=== PATIENT | female | born 1950 | race Caucasian/White ===

== ENCOUNTER → 2016-12-11 | Outpatient (CLI) | payer MEDICARE, OTHER ==
[~2016-12-11] MED LIST: AMLO5TAB PO; ASPIRIN 81MG TA81 MG PO; METFORMIN 500M500 M1 PO; METOPROLOL 25 M25 MG PO; NITROGLYCERIN0.4 MG SL; OMEPRAZOLE40 MG PO; ONE DAILY FOR1 EACH PO; UBIQUINOL100 MG PO; VALSARTAN160 MG PO
--- NOTE | 2016-12-11 13:04 | RADIOLOGY REPORT PS360 ---
History and Indications: Hypertension, diabetes, family history, chest pain and fatigue Procedure: Patient exercised on Tay protocol 6 min and 31 seconds, resting heart rate was 83 bpm resting blood pressure 146/80, with exercise maximum heart rate achieved was 1 40 bpm which is greater than 85% of the maximum predicted heart rate and a blood pressure was 200/95. Test was stopped due to fatigue patient denied any complained of chest pain. Patient has adequate exercise capacity achieved 7mets of workload on treadmill, the blood pressure response to exercise was hypertensive. Electrocardiogram: Resting electrocardiogram showed sinus rhythm left atrial enlargement poor R wave progression possible anterolateral infarct age indeterminate. With exercise there is less than 1.[address] segment depression noted from the baseline EKG. Occasional premature ventricular complexes were also seen. The EKG portion of the exercise Myoview is negative for ischemia. Cardiac stress and resting SPECT images: Cardiac stress and rest SPECT images were obtained using technetium 99 Myoview 10.5 mCi at rest and 30.3 mCi at stress, gated SPECT further analysis of segmental wall motion and calculation of the ejection fraction also done. Cardiac stress and the suspect images show decreased tracer activity in the anteroapical, apex and anteroseptal wall which improves on the resting images suggestive of reversible ischemia in that area. Computer derived ejection fraction is 48% with anteroapical wall hypokinesis. Right ventricle is mildly enlarged with normal contractility. Conclusion: 1. The EKG portion of the exercise Myoview is negative for ischemia, patient has adequate exercise capacity achieved 7mets of workload on treadmill, the blood pressure response to exercise was hypertensive test was started due to fatigue patient denied any complained of chest pain. 2. Scintigraphic evidence of reversible ischemia involving the anteroapical, apex and anteroseptal wall. Computer derived ejection fraction is 48% with segmental wall motion abnormality as described above, right ventricle is mildly enlarged with normal contractility. 3. Abnormal exercise Myoview study.
== END ==
LOC: RAD 06:22
DX: R07.89 Other chest pain (principal)
CPT/HCPCS: A9502

== ENCOUNTER 2016-12-12 16:05 | Observation (INO) | payer MEDICARE, OTHER ==
[~2016-12-12] VITALS: Ht 162.6 cm; Wt 90.0 kg
[2016-12-12 16:06] VITALS: BP 160/60
[2016-12-12] MEDS ORDERED: METFORMIN 500M500 M1 PO (16:09)
[2016-12-12] MEDS ORDERED: AMLO5TAB PO (16:10)
[2016-12-12] MEDS ORDERED: OMEPRAZOLE40 MG PO (16:10)
--- OUTSIDE RECORDS SUMMARY | 2016-12-12 16:18 | External Medical Summary Rpt | CCD ---
Demographics Preferred Language Belgian Marital Status Unknown Adventism Affiliation Unknown Race Unknown Ethnic Group Unknown Author Author , AMANDA PATEL Address Unknown Phone Immunization No patient found.
--- OUTSIDE RECORDS SUMMARY | 2016-12-12 16:18 | External Medical Summary Rpt ---
Author Author AMANDA Kelly, AMANDA Kelly Organization [employer] Address Unknown Phone Unavailable
--- OUTSIDE RECORDS SUMMARY | 2016-12-12 16:18 | External Medical Summary Rpt | CCD ---
Author Author , AMANDA PATEL Address Unknown Phone [email or web address] Purpose Continuity of Care Document - through 2016 Problems Code Diagnosis DOS Provider Status R07.9 CHEST PAIN, UNSPECIFIED
--- OUTSIDE RECORDS SUMMARY | 2016-12-12 16:18 | External Medical Summary Rpt | CCD ---
Author Author [employer] Organization [employer] Address Unknown Phone Unavailable Purpose Continuity of Care Document - through 2016
--- OUTSIDE RECORDS SUMMARY | 2016-12-12 16:18 | External Medical Summary Rpt | CCD ---
Author Author , AMANDA PATEL Address Unknown Phone [email or web address] Purpose Continuity of Care Document - through 2016 Problems Code Diagnosis DOS Provider Status R07.9 CHEST PAIN, UNSPECIFIED
--- OUTSIDE RECORDS SUMMARY | 2016-12-12 16:18 | External Medical Summary Rpt | CCD ---
Demographics Preferred Language Malaysian Marital Status Unknown Sikh Affiliation Unknown Race Unknown Ethnic Group Unknown Author Author , AMANDA PATEL Address Unknown Phone Immunization No patient found.
[2016-12-12 16:20] LABS: HEMOGLOBIN 12.8 g/dL (12.2-16.2)
--- NOTE | 2016-12-12 16:43 | Emergency Room Report ---
History of Present Illness Time Seen by 1616 Presenting Problem in Triage Pt arrived:Walked Presenting Problem:PT C/O CHEST TIGHTNESS THAT HAS BEEN GOING ON ALL WEEK. ADVISES SHE HAD A STRESS TEST YESTERDAY. SHE HAS BEEN HAVING TIGHTNESS ON AND OFF ALL DAY. 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 N Clinical Suspician of Infection? N Mental Status: 1 - Regular (Normal Baseline) Sepsis Risk:Low Sepsis Risk Have you (or family members/close friends) recently traveled outside the [place]? N If Yes, where/when: Have you had exposure to infectious disease within the past month? N TB? Other? Specify: ALLERGIES Coded Allergies: No Known Allergies (12/11/16) Home Medications Reported Medications Metformin HCl (Metformin) 500 MG PO BID #360 Omeprazole (Omeprazole 40MG) 40 MG PO DAILY #60 Amlodipine Besylate (Amlodipine) 5 MG PO DAILY #90 History Medical History General CAD? No Angina: No NV: No Hypertension? No Hyperlipidemia? No CHF? No DVT? No PE? No COPD? No Asthma? No Anemia? No GERD? No Gastric ulcers? No GI Bleed? No Hernia? No Thyroid Problems? No Hypothyroidism? No CVA? No Seizures? No Diabetes? Yes Insulin Dependent: No Insulin Pump: No Home FSBS? Yes Renal Insuffiency? No End Stage Renal Disease? No UTI? No Stones? No BPH? No GB Disease: No Nephritic Syndrome? No Asplenia? No Hepatitis? No Sickle Cell Disease? No Arthritis? No Migraines? No Cataracts? No Glaucoma? No MRSA? No HIV? No TB? No Anxiety? No Depression? No Cancer? No More? No Immunization Hx DT/Tetanus 1-4 Years Ago Surgical Hx Previous Surgery?Y GALLBLADDER Social History Smoking Hx Smoker: Never Smoker Tobacco: No Are you/the child exposed to second-hand smoke: No Alcohol Alcohol: No Review of Systems All Other Systems Reviewed and Negative Physical Exam Vital Signs Vital Signs Date Time Temp Pulse Resp B/P Pulse O2 O2 Flow FiO2 Ox Delivery Rate 12/12 1755 84 16 158/71 96 12/12 1712 65 16 163/64 98 12/12 1606 98.4 70 16 160/60 98 General Appearance normal appearance, WD/WN Respiratory Status No: respiratory distress. Cardiovascular normal exam, regular rate/rhythm Neurologic alert, taxation agent II-XII nml as tested Medical Decision Making LABS/Meds/Orders Pt receiving controlled substance in ED? No Results/Orders Laboratory Tests 12/12/16 1610: Sodium 140, Potassium 3.5, Chloride 104, Carbon Dioxide 27, BUN 11, Creatinine 0.7, Estimated Creat Clear 115, Estimated GFR (MDRD) 84, Glucose 151 H, Calcium 9.0, Total Bilirubin 1.3 H, AST 14 L, ALT 25, Alkaline Phosphatase 82, Creatine Kinase 42, CK-MB (CK-2) Rel Index 1.2, CK and CKMB Interp < 0.5, Troponin I < 0.02, Total Protein 7.1, Albumin 3.8, Globulin 3.3 H, Albumin/ Globulin Ratio 1.2, WBC 11.8 H, RBC 4.27, Hgb 12.8, Hct 38.4, MCV 89.9, RDW 12.6, Plt Count 254, MPV 7.6, Gran % 77.6, Gran # 9.2 H, Lymphocytes % 17.0, Monocytes % 4.5, Eosinophils % 0.7, Basophils % 0.3, Lymphocytes # 2.0, Monocytes # 0.5, Eosinophils # 0.1, Basophils # 0.0, PUBS MCHC 33.3, MCH 29.9 Current Medication Orders Sig/Michelet Start time Last Medication Dose Route Stop Time Status Admin Aspirin 243 MG ONCE ONE 12/12 164 DC 12/12 PO 12/12 164 1646 Aspirin 0 .STK-MED ONE 12/12 164 DC .ROUTE Sodium Chloride 10 ML PRN PRN 12/12 161 AC IV 12/13 161 Orders Procedure Date/time Status Decision to admit 12/12 181 Active ELECTROCARDIOGRAM REQUEST 12/13 1611 Active CHEST(2 VIEWS-NOT PORTABLE) 12/13 1611 Active IV SALINE LOCK 12/13 1611 Active CBC WITH AUTO DIFF 12/13 1611 Complete CARDIAC ENZYMES 12/13 1611 Complete CHEM 12 PROFILE 12/13 1611 [facility] 12/12 1609 Active Departure Departure Time of Disposition 1830 Disposition Still a Patient Clinical Impression Primary Impression: Chest pain at rest Secondary Impressions: Chest pain, rule out acute myocardial infarction Condition STABLE Referrals Danielle Walters MD (Family) Additional Instructions Admitted to OBS by Dr. Walters to Dr. Walters Discharge Counseling Counseled pt/family regarding diagnosis, test results, follow up needs ED Critical Care Critical Care No If Critical Care minutes are documented, the time involved in the performance of seperately reportable procedures was not counted toward critical care time documented. I directly delivered medical care to this critically ill and/or injured patient. Timely evaluation and treatment was necessary to address the significant organ system(s) dysfunction present in this patient. at 1837
--- NOTE | 2016-12-12 16:43 | Emergency Room Report ---
History of Present Illness Time Seen by 1616 Presenting Problem in Triage Pt arrived:Walked Presenting Problem:PT C/O CHEST TIGHTNESS THAT HAS BEEN GOING ON ALL WEEK. ADVISES SHE HAD A STRESS TEST YESTERDAY. SHE HAS BEEN HAVING TIGHTNESS ON AND OFF ALL DAY. 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 N Clinical Suspician of Infection? N Mental Status: 1 - Regular (Normal Baseline) Sepsis Risk:Low Sepsis Risk Have you (or family members/close friends) recently traveled outside the [place]? N If Yes, where/when: Have you had exposure to infectious disease within the past month? N TB? Other? Specify: ALLERGIES Coded Allergies: No Known Allergies (12/11/16) Home Medications Reported Medications Metformin HCl (Metformin) 500 MG PO BID #360 Omeprazole (Omeprazole 40MG) 40 MG PO DAILY #60 Amlodipine Besylate (Amlodipine) 5 MG PO DAILY #90 History Medical History General CAD? No Angina: No NM: No Hypertension? No Hyperlipidemia? No CHF? No DVT? No PE? No COPD? No Asthma? No Anemia? No GERD? No Gastric ulcers? No GI Bleed? No Hernia? No Thyroid Problems? No Hypothyroidism? No CVA? No Seizures? No Diabetes? Yes Insulin Dependent: No Insulin Pump: No Home FSBS? Yes Renal Insuffiency? No End Stage Renal Disease? No UTI? No Stones? No BPH? No GB Disease: No Nephritic Syndrome? No Asplenia? No Hepatitis? No Sickle Cell Disease? No Arthritis? No Migraines? No Cataracts? No Glaucoma? No MRSA? No HIV? No TB? No Anxiety? No Depression? No Cancer? No More? No Immunization Hx DT/Tetanus 1-4 Years Ago Surgical Hx Previous Surgery?Y GALLBLADDER Social History Smoking Hx Smoker: Never Smoker Tobacco: No Are you/the child exposed to second-hand smoke: No Alcohol Alcohol: No Review of Systems All Other Systems Reviewed and Negative Physical Exam Vital Signs Vital Signs Date Time Temp Pulse Resp B/P Pulse O2 O2 Flow FiO2 Ox Delivery Rate 12/12 1755 84 16 158/71 96 12/12 1712 65 16 163/64 98 12/12 1606 98.4 70 16 160/60 98 General Appearance normal appearance, WD/WN Respiratory Status No: respiratory distress. Cardiovascular normal exam, regular rate/rhythm Neurologic alert, ceramic coater machine II-XII nml as tested Medical Decision Making LABS/Meds/Orders Pt receiving controlled substance in ED? No Results/Orders Laboratory Tests 12/12/16 1610: Sodium 140, Potassium 3.5, Chloride 104, Carbon Dioxide 27, BUN 11, Creatinine 0.7, Estimated Creat Clear 115, Estimated GFR (MDRD) 84, Glucose 151 H, Calcium 9.0, Total Bilirubin 1.3 H, AST 14 L, ALT 25, Alkaline Phosphatase 82, Creatine Kinase 42, CK-MB (CK-2) Rel Index 1.2, CK and CKMB Interp < 0.5, Troponin I < 0.02, Total Protein 7.1, Albumin 3.8, Globulin 3.3 H, Albumin/ Globulin Ratio 1.2, WBC 11.8 H, RBC 4.27, Hgb 12.8, Hct 38.4, MCV 89.9, RDW 12.6, Plt Count 254, MPV 7.6, Gran % 77.6, Gran # 9.2 H, Lymphocytes % 17.0, Monocytes % 4.5, Eosinophils % 0.7, Basophils % 0.3, Lymphocytes # 2.0, Monocytes # 0.5, Eosinophils # 0.1, Basophils # 0.0, PUBS MCHC 33.3, MCH 29.9 Current Medication Orders Sig/Michelet Start time Last Medication Dose Route Stop Time Status Admin Aspirin 243 MG ONCE ONE 12/12 164 DC 12/12 PO 12/12 164 1646 Aspirin 0 .STK-MED ONE 12/12 164 DC .ROUTE Sodium Chloride 10 ML PRN PRN 12/12 161 AC IV 12/13 161 Orders Procedure Date/time Status Decision to admit 12/12 181 Active ELECTROCARDIOGRAM REQUEST 12/13 1611 Active CHEST(2 VIEWS-NOT PORTABLE) 12/13 1611 Active IV SALINE LOCK 12/13 1611 Active CBC WITH AUTO DIFF 12/13 1611 Complete CARDIAC ENZYMES 12/13 1611 Complete CHEM 12 PROFILE 12/13 1611 Complete [facility] 12/12 1609 Active Departure Departure Time of Disposition 1830 Disposition Still a Patient Clinical Impression Primary Impression: Chest pain at rest Secondary Impressions: Chest pain, rule out acute myocardial infarction Condition STABLE Referrals Danielle Walters MD (Family) Additional Instructions Admitted to OBS by Dr. Walters to Dr. Walters Discharge Counseling Counseled pt/family regarding diagnosis, test results, follow up needs ED Critical Care Critical Care No If Critical Care minutes are documented, the time involved in the performance of seperately reportable procedures was not counted toward critical care time documented. I directly delivered medical care to this critically ill and/or injured patient. Timely evaluation and treatment was necessary to address the significant organ system(s) dysfunction present in this patient. at 183
[2016-12-12 16:44] LABS: BUN 11 mg/dL (7-18)
[2016-12-12 17:21] LABS: GFR (ESTIMATED) 84 ML/MIN (59-)
--- OUTSIDE RECORDS SUMMARY | 2016-12-12 18:18 | External Medical Summary Rpt | CCD ---
Author Author , AMANDA Organization [employer] Address Unknown Phone [email or web address] Purpose Continuity of Care Document - 12-12-2016 through 2016 Problems Code Diagnosis DOS Provider Status R07.9 CHEST PAIN, UNSPECIFIED Results Labs Lab Lab Date Result Refere Interp Status Commen Order Detail nces retati t Range on Cardiac enzymes (12-12-2016 16:10) Serum = 1.2 0-4.0 complet or 017 U/L ed plasma 16:10 creatin e kinase MB (CK-M Serum < 0.5 0.0-3.6 complet or 017 ng/mL ed plasma 16:10 creatin e kinase MB measu Serum = 42 26-192 complet or 017 U/L ed plasma 16:10 creatin e kinase measure m Serum < 0.02 0.00-0. complet or 017 ng/mL 06 ed plasma 16:10 troponi n i.cardi ac measu Comprehensive metabolic panel (12-12-2016 16:10) Serum = 1.2 1.1-1.8 complet or 017 ed plasma 16:10 albumin /globul in mass ra Serum = 3.8 3.4-5.0 complet or 017 gm/dL ed plasma 16:10 albumin measure ment (mas Serum = 82 46-116 complet or 017 U/L ed plasma 16:10 alkalin e phospha tase jolene Serum = 1.3 0.2-1.0 complet or 017 mg/dL ed plasma 16:10 total bilirub in measure m Serum = 11 7-18 complet or 017 mg/dL ed plasma 16:10 urea nitroge n measure men Serum = 9.0 8.5-10. complet or 017 mg/dL 1 ed plasma 16:10 calcium measure ment (mas Serum = 104 98-107 complet or 017 mmoL/L ed plasma 16:10 chlorid e measure ment (mo Carbon = 27 21.0-32 complet dioxide 017 mmoL/L .0 ed 16:10 measure ment Serum = 0.7 0.55-1. complet or 017 mg/dL 02 ed plasma 16:10 creatin ine measure ment ( Estimat = 115 50-200 complet ion of 017 ML/MIN ed creatin 16:10 ine renal clearan ce Estimat = 84 59- complet ed 017 ML/MIN ed glomeru 16:10 lar filtrat ion rate (GF Comment: REFERENCE RANGE: >60 ML/MIN/1.73 SQUARE METERS Comment: If this patient is -Belgian, then multiply the Comment: result by 1.210. Serum = 3.3 1.3-3.2 complet globuli 017 gm/dL ed n 16:10 measure ment (mass/v olume) Serum = 151 74-106 complet or 017 mg/dL ed plasma 16:10 glucose measure ment (mas Serum = 3.5 3.5-5.1 complet potassi 017 mmoL/L ed um 16:10 measure ment Serum = 140 136-145 complet sodium 017 mmoL/L ed measure 16:10 ment Serum = 14 15-37 complet or 017 U/L ed plasma 16:10 asparta te aminotr ansfera ALT = 25 12-78 complet (SGPT) 017 U/L ed ser/lisa 16:10 s Protein = 7.1 6.4-8.2 complet total 017 gm/dL ed ser/lisa 16:10 s CBC w auto diff (12-12-2016 16:10) Blood = 11.8 4.8-10. complet leukocy 017 K/MM3 8 ed william 16:10 count (number /volume ) Automat = 12.6 11.5-17 complet ed 017 % .5 ed erythro 16:10 cyte distrib ution width Red = 4.27 4.2-5.4 complet blood 017 M/mm3 ed cell 16:10 count Blood = 254 142-424 complet platele 017 K/mm3 ed t count 16:10 Automat = 7.6 7.4-10. complet ed 017 fl 4 ed blood 16:10 platele t mean volume jolene [place] % = 4.5 % 1.7-9.3 complet 017 ed 16:10 Absolut = 0.5 0.1-1.0 complet e 017 K/mm3 ed monocyt 16:10 e count Automat = 89.9 82.2-97 complet ed 017 fl .8 ed erythro 16:10 cyte mean corpusc ular v Automat = 33.3 31.8-35 complet ed 017 g/dl .4 ed erythro 16:10 cyte mean corpusc ular h Mean = 29.9 27-31.2 complet corpusc 017 pg ed ular 16:10 hemoglo bin (MCH) determ Lymphoc = 17.0 10-50.0 complet yte 017 % ed count, 16:10 blood, automat ed Absolut = 2.0 0.7-4.5 complet e 017 K/mm3 ed lymphoc 16:10 yte count Blood = 12.8 12.2-16 complet hemoglo 017 g/dL .2 ed bin 16:10 measure ment (mass/v olum Blood = 38.4 37.0-47 complet hematoc 017 % .0 ed rit 16:10 (volume fractio n) Granulo = 77.6 37.0-80 complet cyte 017 % .0 ed percent 16:10 age Blood = 9.2 1.8-7.8 complet granulo 017 K/mm3 ed cytes 16:10 automat ed count (numb Automat = 0.7 % 0.1-12. complet ed 017 0 ed blood 16:10 eosinop hils/10 0 leukocy t Automat 2 = 0.1 0.0-0.4 complet ed 017 K/mm3 ed blood 16:10 eosinop hil count Baso % 10-28-2 = 0.3 % 0.1-2.0 complet 017 ed 16:10 Automat 1028-2 = 0.0 0-0.2 complet ed 017 K/MM3 ed blood 16:10 basophi l count (count/ vo
--- OUTSIDE RECORDS SUMMARY | 2016-12-12 18:18 | External Medical Summary Rpt | CCD ---
Author Author , AMANDA Organization [employer] Address Unknown Phone [email or web address] Purpose Continuity of Care Document - 12-12-2016 [...] SQUARE MET[employer] Comment: If this patient is -[place] Citizen, then multiply the Comment: result by 1.210. [...] blood 16:10 platele t mean volume jolene [place] % = 4.5 % 1.7-9.3 complet 017 [...]
--- OUTSIDE RECORDS SUMMARY | 2016-12-12 18:18 | External Medical Summary Rpt | CCD ---
Demographics Preferred Language Bulgarian Marital Status Unknown Buddhism Affiliation Unknown Race Unknown Ethnic Group Unknown Author Author , AMANDA PATEL Address Unknown Phone Immunization No patient found.
--- OUTSIDE RECORDS SUMMARY | 2016-12-12 18:18 | External Medical Summary Rpt | CCD ---
Demographics Preferred Language Japanese Marital Status Unknown Taoist Affiliation Unknown Race Unknown Ethnic Group Unknown Author Author , AMANDA PATEL Address Unknown Phone Immunization No patient found.
--- OUTSIDE RECORDS SUMMARY | 2016-12-12 18:19 | External Medical Summary Rpt ---
Author Author [employer]DA Production, [employer] Organization [employer] Address Unknown Phone Unavailable Results CBC W Auto Differential panel in Blood Observa Value Referen Units Interpr Notes Date tion ce etation Range Basophils 0 - 0.2 K/MM3 Normal No Dec 12 informati 2016 4:10 [#/volume on in PM ] in source Blood by data Automated count Basophils 0.1 - 2.0 % Normal No Dec 12 / informati 2017 4:10 leukocyte on in PM s in source Blood by data Automated count Eosinophi 0.0 - 0.4 K/mm3 Normal No Dec 12 ls informati 2016 4:10 [#/volume on in PM ] in source Blood by data Automated count Eosinophi 0.1 - % Normal No Dec 12 ls/100 12.0 informati 2016 4:10 leukocyte on in PM s in source Blood by data Automated count Granulocy 1.8 - 7.8 K/mm3 High No Dec 12 william informati 2017 4:10 [#/volume on in PM ] in source Blood by data Automated count Granulocy 37.0 - % Normal No Dec 12 william/100 80.0 informati 2016 4:10 leukocyte on in PM s in source Blood by data Automated count Hematocri 37.0 - % Normal No Dec 12 t [Volume 47.0 informati 2016 4:10 on in PM Fraction] source of Blood data Hemoglobi 12.2 - g/dL Normal No Dec 12 n 16.2 informati 2016 4:10 [Mass/vol on in PM ume] in source Blood data Lymphocyt 0.7 - 4.5 K/mm3 Normal No Dec 12 es informati 2016 4:10 [#/volume on in PM ] in source Unspecifi data ed specimen by Automated count Lymphocyt 10 - 50.0 % Normal No Dec 12 es informati 2016 4:10 [#/volume on in PM ] in source Unspecifi data ed specimen by Automated count Erythrocy 27 - 31.2 pg Normal No Dec 12 te mean informati 2017 4:10 corpuscul on in PM ar source hemoglobi data n [Entitic mass] Erythrocy 31.8 - g/dl Normal No Dec 12 te mean 35.4 informati 2017 4:10 corpuscul on in PM ar source hemoglobi data n concentra tion [Mass/vol ume] by Automated count Erythrocy 82.2 - fl Normal No Dec 12 te mean 97.8 informati 2017 4:10 corpuscul on in PM ar volume source [Entitic data volume] by Automated count Monocytes 0.1 - 1.0 K/mm3 Normal No Dec 12 informati 2017 4:10 [#/volume on in PM ] in source Blood by data Automated count Monocytes 1.7 - 9.3 % Normal No Dec 12 /100 informati 2017 4:10 leukocyte on in PM s in source Blood by data Automated count Platelet 7.4 - fl Normal No Dec 12 mean 10.4 informati 2017 4:10 volume on in PM [Entitic source volume] data in Blood by Automated count Platelets 142 - 424 K/mm3 Normal No Dec 12 informati 2017 4:10 [#/volume on in PM ] in source Blood data Erythrocy 4.2 - 5.4 M/mm3 Normal No Dec 12 william informati 2017 4:10 [#/volume on in PM ] in source Amniotic data fluid Erythrocy 11.5 - % Normal No Dec 12 te 17.5 informati 2017 4:10 distribut on in PM ion width source [Entitic data volume] by Automated count Leukocyte 4.8 - K/MM3 High No Dec 12 s 10.8 informati 2016 4:10 [#/volume on in PM ] in source Blood data
[2016-12-12 18:44] VITALS: BP 156/67
[2016-12-12 18:45] VITALS: BP 156/67
[2016-12-12] MEDS ORDERED: VALSARTAN160 MG PO (18:57)
[2016-12-12] MEDS ORDERED: ASPIRIN 81MG TA81 MG PO (19:00)
[2016-12-12] MEDS ORDERED: ONE DAILY FOR1 EACH PO (19:01)
[2016-12-12] MEDS ORDERED: UBIQUINOL100 MG PO (19:02)
[2016-12-12 19:45] VITALS: BP 139/78
[2016-12-12 21:15] VITALS: BP 139/78
[2016-12-13 00:11] VITALS: BP 135/54
[2016-12-13 04:30] VITALS: BP 121/55
--- NOTE | 2016-12-13 06:57 | RADIOLOGY REPORT PS360 ---
CHEST(2 VIEWS-NOT PORTABLE) HISTORY: CHEST TIGHTNESS ORDERING PHYSICIAN: Gloria Delgado MD PATIENT AGE: 66 years COMPARISON: None available FINDINGS: The cardiomediastinal silhouette and pulmonary vascularity are within normal limits. The lungs are clear without infiltrates, suspicious nodules, or pleural effusions. No acute bony abnormalities. IMPRESSION: Negative chest, no acute finding
[2016-12-13 07:30] VITALS: BP 135/63
[2016-12-13] MEDS ORDERED: METOPROLOL 25 M25 MG PO (08:31)
[2016-12-13] MEDS ORDERED: NITROGLYCERIN0.4 MG SL (08:32)
--- NOTE | 2016-12-13 08:34 | Discharge Summary Standard ---
HP/DC combined ([facility]) Date of admission: 12/12/16 Chief complaint: Chest pressure History: History of Present Illness: Valerie is a 66you WF with hx of HBP, diabetes, GERD and strong family hx of heart disease who had a cardiolyte stress on Wednesday that was positive for possible ischemia on the nuclear images. I spoke with her by phone to yesterday to review the results of the stress and recommended cardiology referral for heart cath and she was agreeable. About 3 hours after our conversation, her daughter called me stating she was having chest pressure radiatiing into her back. SHe was directed to the ER for further evaluation. By the time she arrived to the ER she was asymptomatic. Her enzymes were negative and her EKG was unchanged from previous in 2012 but did question possible old inferior infarct. SHe was admitted for serial enzymes. Past Medical History: Medical History: CAD? No Angina: No IN: No Hypertension? Yes Hyperlipidemia? No CHF? No DVT? No PE? No COPD? No Asthma? No Anemia? No GERD? No Gastric ulcers? No GI Bleed? No Hernia? No Thyroid Problems? No Hypothyroidism? No CVA? No Seizures? No Diabetes? Yes Insulin Dependent: No Insulin Pump: No Home FSBS? Yes Renal Insuffiency? No UTI? No Stones? No BPH? No GB Disease: No Nephritic Syndrome? No Asplenia? No Hepatitis? No Sickle Cell Disease? No Arthritis? No Migraines? No Cataracts? No Glaucoma? No MRSA? No HIV? No TB? No Anxiety? No Depression? No Cancer? No More? No Additional hx: GERD Surgical history: Previous Surgery?Y Cholecystectomy Cyst removed from breast Medications: Reported Medications Metformin HCl (Metformin) 1,000 MG PO BID #360 TAB Omeprazole (Omeprazole 40MG) 40 MG PO BID #60 Valsartan (Valsartan 160MG) 320 MG PO DAILY ASPIRIN (Aspirin) 81 MG PO DAILY Folic Acid/Mv,Fe,Other Min (One Daily For Women Tablet) 1 EACH PO DAILY Ubiquinol 100 MG PO DAILY Amlodipine Besylate (Amlodipine) 5 MG PO DAILY #90 Allergies: Coded Allergies: No Known Allergies (12/11/16) Family History: Family history: Postive for: CAD, DM, HTN. Social History: Smoking Hx: Tobacco: No Smoker: Never Smoker Type: N/A Packs/day: N/A Are you/the child exposed to second-hand smoke: No Alcohol: Alcohol: No Hx of Drug Use: Drug Use? No Patien't marital status is: Patient's support system is: excellent Review of Systems: Patient unresponsive? No Constitutional No: chills, fatigue, lethargy, malaise, weak, recent weight loss. ENT No: hearing loss, nasal congestion, sinus problems, sore throat. Cardiovascular Positive for: chest pain. No: ZAZUETA, PND, edema, palpitations. Respiratory No: dyspnea on exertion, shortness of air, hemoptysis, pleurisy, productive cough (sputum). GI Positive for: GERD. No: abdominal pain, anorexia, constipation, diarrhea, dysphagia, hematemeis, nausea, vomitting. (female) No: flank pain, frequency, nocturia. Skin No: bruising, diaphoresis, rash. Neurological No: change in LOC, confusion, dizziness, headache, seizure, syncope. Immune/allergy No: hives, itching. Eyes No: blurry vision, diploplia, vision loss. Musculoskeletal No: extremity pain, extremity swelling, joint pain, joint swelling. Heme No: bleeding, bruising. Endocrine No: cold intolerance, heat, polydipsia. Psychiatric Positive for: anxious, stress. No: confused, depression. Vital signs: Vital Signs Result Date Time Pulse Ox 98 12/12 1606 B/P 160/60 12/12 1606 Temp 98.4 12/12 1606 Pulse 70 12/12 1606 Resp 16 12/12 1606 O2 Delivery ROOM AIR 12/12 1844 Physical Exam: Exam: General appearance: alert, no acute distress Eyes: conjunctiva clear, EOM's w/normal ROM, PERRLA ENT: mucous membranes moist, teeth/gums normal Neck: no carotid bruit, supple Cardiovascular: regular rate & rhythm, no murmur Respiratory: clear to auscultation, chest non-tender, no respiratory distress ABD: non-distended, normal bowel sounds, soft, no tenderness Extremities: no peripheral edema Skin: dry, normal color, warm Neuro: alert, orange grower II-XII nml as tested, normal mood/affect, oriented Lab data: Labs: Laboratory Tests 12/13/16 0105: Creatine Kinase 32, CK-MB (CK-2) Rel Index 1.6, CK and CKMB Interp < 0.5, Troponin I < 0.02 12/12/16 2130: Creatine Kinase 38, CK-MB (CK-2) Rel Index 1.3, CK and CKMB Interp < 0.5, Troponin I < 0.02 12/12/16 1905: Creatine Kinase 43, CK-MB (CK-2) Rel Index 1.2, CK and CKMB Interp < 0.5, Troponin I < 0.02 12/12/16 161: B-Natriuretic Peptide 30, Triglycerides 115, Cholesterol 151, LDL Cholesterol 75.0, VLDL Cholesterol 23.0, HDL Cholesterol 53.0 12/12/16 161: Sodium 140, Potassium 3.5, Chloride 104, Carbon Dioxide 27, BUN 11, Creatinine 0.7, Estimated Creat Clear 115, Estimated GFR (MDRD) 84, Glucose 151 H, Calcium 9.0, Total Bilirubin 1.3 H, AST 14 L, ALT 25, Alkaline Phosphatase 82, Creatine Kinase 42, CK-MB (CK-2) Rel Index 1.2, CK and CKMB Interp < 0.5, Troponin I < 0.02, Total Protein 7.1, Albumin 3.8, Globulin 3.3 H, Albumin/ Globulin Ratio 1.2, PT 10.8, INR 1.00, APTT 25.0, WBC 11.8 H, RBC 4.27, Hgb 12.8, Hct 38.4, MCV 89.9, RDW 12.6, Plt Count 254, MPV 7.6, Gran % 77.6, Gran # 9.2 H, Lymphocytes % 17.0, Monocytes % 4.5, Eosinophils % 0.7, Basophils % 0.3, Lymphocytes # 2.0, Monocytes # 0.5, Eosinophils # 0.1, Basophils # 0.0, PUBS MCHC 33.3, MCH 29.9 Diagnosis(es): 1. Chest pain, rule out acute myocardial infarction 2. Abnormal cardiovascular stress test 3. Family history of heart disease 4. Hypertension 5. GERD (gastroesophageal reflux disease) 6. Anxiety Course: SHe was admitted and placed on the cardiac exercise specialist. SHe had serial enzymes x 3 that were negative. She had no further chest pain or pressure after admission. She was continued on her home medications and low dose beta althea was added. SHe was felt stable to be discharged home with plans to arrange outpt cardiology consult for consideration of heart cath. Discharge medications: Continue taking these medications: Metformin HCl (Metformin) 500 MG TABLET 1,000 MILLIGRAM ORAL TWICE A DAY Qty = 360 Omeprazole (Omeprazole 40MG) 40 MG CAPSULE.DR 40 MILLIGRAM ORAL TWICE A DAY Qty = 60 Amlodipine Besylate (Amlodipine) 5 MG TABLET 5 MILLIGRAM ORAL DAILY Qty = 90 Valsartan (Valsartan 160MG) 160 MG TABLET 320 MILLIGRAM ORAL DAILY ASPIRIN (Aspirin) 81 MG TAB.CHEW 81 MILLIGRAM ORAL DAILY Folic Acid/Mv,Fe,Other Min (One Daily For Women Tablet) 1 EACH TABLET 1 EACH ORAL DAILY Ubiquinol (Ubiquinol) 100 MG CAPSULE 100 MILLIGRAM ORAL DAILY Start taking the following new medications: Metoprolol Tartrate (Metoprolol 25MG) 25 MG TABLET 12.5 MILLIGRAM ORAL TWICE A DAY Qty = 15 No Refills NITROGLYCERIN (Nitrostat) 0.4 MG TAB.SUBL 0.4 MILLIGRAM SUBLINGUAL EVERY FIVE MINUTES NEEDED as needed for CHEST PAIN Qty = 25 No Refills Disposition: Discharge home on above medications. Office of [facility] will arrange consultation with Dr. Mejia and notify patient. She is to call if she has recurring episodes of chest pain unrelieved by NTG. at [phone]
[2016-12-13 09:13] VITALS: BP 135/63
== END 2016-12-13 09:15 | disposition home or self-care (01) ==
LOC: ER 16:05 → 2ND 18:15
PROVIDERS: General Practice
DX: R07.9 Chest pain, unspecified (principal); I10 Essential (primary) hypertension; E11.9 Type 2 diabetes mellitus without complications; R06.00 Dyspnea, unspecified
CPT/HCPCS: G0378